=== PATIENT | male | born 1965 | race Caucasian/White ===

== ENCOUNTER 2022-01-03 07:05 | Outpatient (CLI) | payer OTHER, SELFPAY ==
--- NOTE | 2022-01-03 07:15 | MR_ITS ---
[address] [address] Phone:?[phone] Fax:?[phone] Referring Physician Information: Pieter Webster D.P.M. [address] [place] [address] Phone:?[phone] Fax:?[phone] Patient:?Jorge Conner D.O.B:?1965 Sex:?Male Phone:?[phone] [facility] MRN:?[id number] Exam Date:?01/03/2022 ? EXAM: MRI OF THE RIGHT ANKLE WITHOUT CONTRAST CLINICAL INFORMATION: Male, 56 years old, with right ankle pain. INDICATION: Evaluate ankle pain. PRIOR SURGERY: None reported. PLAIN FILMS: None available. COMPARISONS: No prior MRIs available. TECHNICAL INFORMATION: Using a 1.5T MR scanner and a localizing surface coil: sagittals: T1, STIR coronals: T1, STIR axials: T1, STIR SEDATION: None. CONTRAST: None. FINDINGS: Osseous structures: Mild-moderate edema-like signal is present in the posterior aspect of the lateral malleolus (axial STIR series 8 image 1). Additionally, mild-moderate edema is present in the posterior aspect of the calcaneal tuberosity, adjacent to the Achilles tendon insertion. No discrete fracture seen. Os trigonum: No os trigonum or abnormally prominent Stieda's process. Tarsal coalition: No calcaneonavicular, talocalcaneal or cubonavicular coalition. Tibiotalar joint: Effusion: Small tibiotalar joint effusion. Ganglion cyst: None. Osteochondral surfaces: No osteochondral abnormality. Loose bodies: No demonstrable loose bodies. Subtalar joint: Effusion: Small subtalar joint effusion. Articular cartilage: No osteochondral abnormality. Tarsal joints: Talonavicular: Unremarkable. Calcaneocuboid: Unremarkable. Approximately 11 x 7 x 8 mm ganglion cyst arises from the medial aspect of the calcaneocuboid joint (axial STIR series 8 image 13 and coronal STIR series 6 image 5). Naviculocuneiform: Unremarkable. Ligaments: Syndesmotic ligaments:?The anterior and posterior inferior tibiofibular syndesmotic ligaments are normal. Lateral ligaments:?Moderate attenuation and irregularity of the anterior talofibular and calcaneofibular ligaments (axial T1 series 7 images 9-15). Deltoid ligament:?The visualized components of the superficial and deep deltoid ligament, specifically the tibiospring and posterior tibiotalar ligaments, are intact, but mildly attenuated and irregular in appearance. Calcaneonavicular spring ligament:?The superomedial component of the calcaneonavicular spring ligament is grossly intact. Bifurcate and calcaneocuboid ligaments:?Intact lateral calcaneonavicular and medial calcaneocuboid ligaments. The dorsolateral calcaneocuboid ligament is intact. Tendons: Peroneal:?The peroneal tendons are appropriately situated within the retromalleolar groove and the superior peroneal retinaculum is intact. Normal thickness and signal intensity without tendinopathy, tenosynovitis, or split/tear. Flexor tendons:?The posterior tibialis, flexor digitorum and flexor hallucis longus tendons are intact. No significant tendinopathy and without tenosynovitis, tendon split or tendon disruption. Extensor tendons:?The anterior tibialis, extensor digitorum longus, and extensor hallucis longus tendons are intact. No significant tendinopathy and without tenosynovitis, tendon split or tendon disruption. Achilles:?Mild Achilles insertional tendinopathy and fraying, without tendon tear (axial STIR series 8 image 13 and sagittal STIR series 4 image 15). Mild to moderate soft tissue edema is present posterior to the tendon insertion (sagittal STIR series 4 image 16). Sinus tarsi:?The sinus tarsi signal is normal. Plantar aponeurosis: There is no abnormal thickening of, abnormal intrasubstance signal involving, or perifascial edema about the plantar aponeurosis. Specifically, the plantar fascia origin appears normal in signal intensity and morphology. Plantar musculature:?The intrinsic foot musculature is normal in bulk and signal intensity without evidence of denervation atrophy. Neurovascular structures and tarsal tunnel: The posterior tibial neurovascular structures appear unremarkable coursing past the ankle and through the tarsal tunnel. IMPRESSION: 1. Mild Achilles insertional tendinopathy and fraying, without tendon tear, but with mild-moderate soft tissue and underlying bone marrow edema. 2. Chronic sequelae of low-grade/incomplete sprains of the lateral ligaments and deltoid ligamentous complex, without evidence of an acute injury. 3. Approximately 11 x 7 x 8 mm ganglion cyst arising from the medial aspect of the calcaneocuboid joint. 4. Nonspecific small tibiotalar and subtalar joint effusions. No chondromalacia or osteochondral lesion throughout the hindfoot/ankle. 5. No fracture or osseous stress reaction. 6. No other ligamentous or myotendinous abnormality. BC Electronically signed on 01/03/2022 2:38:00 PM by Tray Keys M.D.
== END 2022-01-03 07:06 | disposition home or self-care (01) ==
LOC: MRI 07:06
PROVIDERS: PCP Family Medicine
DX: M25.571 Pain in right ankle and joints of right foot (principal); M25.471 Effusion, right ankle; L03.115 Cellulitis of right lower limb
CPT/HCPCS: 73721

== ENCOUNTER 2022-01-03 11:05 | Outpatient (REF) | payer OTHER, SELFPAY ==
[2022-01-03 11:32] LABS: Basophils Absolute Auto 0.06 K/uL (0.00-0.30); Basophils Percent Auto 1.2 % (0.0-3.0); Eosinophils Percent Auto 4.1 % (0.0-7.0); Hematocrit 47.2 % (37.0-53.0); Hemoglobin* 15.5 gm/dL (13.5-17.5); Lymphocytes Absolute Auto 1.81 K/uL (0.90-2.90); Lymphocytes Percent Auto 37.2 % (20-44); Mean Corpuscular HGB Conc 33 gm/dL (32-36); Mean Corpuscular Hemoglobin 30 pg (26-34); Mean Corpuscular Volume 92 fL (80-100); Monocytes Percent Auto 9.9 % (0.0-11.0); Neutrophils Absolute Auto 2.31 K/uL (1.7-7.0); Neutrophils Percent Auto 47.6 % (42.0-72.0); Platelet Count* 209 K/uL (140-440); RDW Coefficient of Variation % 12.9 % (11.5-15.5); Red Blood Count 5.12 m/uL (4.30-5.90); White Blood Count* 4.86 K/uL (4.50-11.00)
[2022-01-03 11:34] LABS: Slide Review Reflex No
[2022-01-03 11:43] LABS: C Reactive Protein* < 0.5 mg/dL (0.5-1.0)
[2022-01-03 12:13] LABS: Erythrocyte SedimentationRate* <2 mm/hr (2-15)
== END 2022-01-03 11:06 | disposition home or self-care (01) ==
LOC: NPINS 11:05
PROVIDERS: PCP Family Medicine
DX: L03.115 Cellulitis of right lower limb (principal)
CPT/HCPCS: 85025; 85651; 86140; 86618

== ENCOUNTER 2023-07-13 16:52 | Outpatient (CLI) | payer OTHER, SELFPAY | END 2023-07-13 16:53 | disposition home or self-care (01) | PROVIDERS: PCP Family Medicine; Visit Provider Family Medicine | DX: N52.9 Male erectile dysfunction, unspecified (principal); Z13.228 Encounter for screening for other metabolic disorders; Z13.220 Encounter for screening for lipoid disorders; Z12.5 Encounter for screening for malignant neoplasm of prostate | CPT/HCPCS: 80048; 80061; G0103 ==

== ENCOUNTER 2023-08-17 19:20 | Outpatient (CLI) | payer OTHER, SELFPAY ==
--- NOTE | 2023-09-22 12:23 | W.PM.SLEEP ---
Sleep Study Details Details Interpreting Provider: Lisa Date of Sleep Study: 08/17/23 Sleep Study Details: STUDY TYPE:? Home unattended ? BMI:? 29.2 ORDERING PROVIDER:Caitlyn Robison INDICATION:? Concerned about sleep apnea ? SLEEP SUMMARY:? 410 minutes monitored RESPIRATORY SUMMARY:? AHI 38.7, left lateral 8.3, right lateral 37.4, supine 52.4 Low oxygen 70 9.2% of study oxygen less than 90% Snoring 27.9% PERIODIC LIMB MOVEMENTS OF SLEEP:? Not recorded CARDIAC:? Range 56-89, mean 65.7 beats per minute IMPRESSION:? Severe obstructive sleep apnea RECOMMENDATION: Treatment options include CPAP AutoSet, in-lab titration. Dental appliance and airway expansion surgery are less likely to be effective.
== END 2023-08-17 19:21 | disposition home or self-care (01) ==
LOC: SLEEP 19:21
PROVIDERS: PCP Family Medicine; Visit Provider Family Medicine
DX: G47.33 Obstructive sleep apnea (adult) (pediatric) (principal)
CPT/HCPCS: 95806

== ENCOUNTER 2024-11-28 14:12 | Outpatient (CLI) | payer OTHER, SELFPAY | END 2024-11-28 14:13 | disposition home or self-care (01) | PROVIDERS: PCP Family Medicine; Visit Provider Family Medicine | DX: Z00.00 Encounter for general adult medical examination without abnormal findings (principal); N52.9 Male erectile dysfunction, unspecified; Z13.228 Encounter for screening for other metabolic disorders; Z13.6 Encounter for screening for cardiovascular disorders; Z12.5 Encounter for screening for malignant neoplasm of prostate | CPT/HCPCS: 80048; 80061; G0103 ==

== ENCOUNTER 2025-01-13 12:41 | Outpatient (CLI) | payer OTHER, SELFPAY ==
--- NOTE | 2025-01-13 13:00 | CRLHL7_ITS ---
For Patients: As a result of the 21st Century Cures Act, medical imaging exams and procedure reports are released immediately into your electronic medical record. You may view this report before your referring provider. If you have questions, please contact your health care provider. CLINICAL INDICATION: Left shoulder pain. COMPARISON IMAGING STUDIES: None available at time of interpretation. TECHNICAL: Non-contrast MRI of the left shoulder. Axial, sagittal oblique and coronal oblique T1, PD, PD FS, T2 and T2 FS images. 1.5 [place] MR scanner. FINDINGS: GLENOHUMERAL JOINT: Effusion/Joint Space: No effusion. No joint bodies. Humeral Head Articular Cartilage: Maintained. Glenoid Articular Cartilage: Maintained. Alignment: Maintained. Capsule: No generalized capsular edema. OSSEOUS STRUCTURES: No acute fracture. No avascular necrosis. Focus of reactive cystic-like change involves the lesser tuberosity. CORACOACROMIAL ARCH: Acromial Morphology: Type 2 acromial morphology. Lateral downward sloping of the acromion. No os acromiale. Spurring of the anterolateral acromion. Lateral acromial thickness is 10 mm. Acromiohumeral Interval: At its narrowest, the interval measures 7 mm. Coracohumeral Interval: At its narrowest, the coracohumeral interval measures 6 mm. Coracoid index is 24 mm. ACROMIOCLAVICULAR JOINT REGION: AC joint degenerative arthrosis. Coracoclavicular ligament intact. BURSAE: No bursal fluid collection. ROTATOR CUFF TENDONS AND MUSCLES AND DELTOID: Supraspinatus and Infraspinatus: Moderate supraspinatus tendinosis. There is a suspected 6 millimeter anterior/posterior extent partial-thickness undersurface tear of the anterior most distal tendon on coronal oblique T2 image number 10 of series 6. This appears high-grade on that image. There is no muscle atrophy. Mild infraspinatus tendinosis without infraspinatus tendon tear or muscle atrophy. Teres Minor: Distal tendon intact. No muscle atrophy. Subscapularis: High-grade tearing of the distal subscapularis tendon over a 12 millimeter craniocaudad by 11 millimeter medial/lateral extent. No muscle atrophy. Deltoid: No muscle atrophy or edema. BICEPS TENDON, LONG HEAD: There is tendinosis and partial tearing of the long head of biceps tendon. Degenerative labral changes extend to the biceps anchor region. No dislocation of tendon from bicipital groove. GLENOID LABRUM: Degenerative tearing/fraying of the superior labrum. Labrum below level of the equator appears intact. OTHER FINDINGS: There is no abnormality within the suprascapular or spinoglenoid notches nor within the quadrilateral space. No axillary adenopathy or mass. IMPRESSION: 1. High-grade tearing of the distal subscapularis tendon superiorly, without muscle atrophy. 2. Subcentimeter area of suspected high-grade partial-thickness undersurface supraspinatus tendon tearing anteriorly. Moderate underlying tendinosis. No muscle atrophy. 3. Tendinosis and partial tearing of the long head of the biceps tendon. 4. Degenerative tearing and fraying of the superior labrum. 5. AC joint degenerative arthrosis. 6. Lateral downward sloping of the acromion with spurring of the anterior aspect of the lateral acromion. Dictated by Sg Guzman MD @ 01/16/2025 10:06:11 AM (Electronically Signed)
== END 2025-01-13 12:42 | disposition home or self-care (01) ==
PROVIDERS: PCP Family Medicine; Visit Provider Family Medicine
DX: M25.512 Pain in left shoulder (principal); M75.102 Unspecified rotator cuff tear or rupture of left shoulder, not specified as traumatic; S46.812A Strain of other muscles, fascia and tendons at shoulder and upper arm level, left arm, initial encounter; M19.012 Primary osteoarthritis, left shoulder
CPT/HCPCS: 73221

== ENCOUNTER 2025-02-06 14:12 | Outpatient (CLI) | payer OTHER, SELFPAY | END 2025-02-06 14:13 | disposition home or self-care (01) | PROVIDERS: PCP Family Medicine; Visit Provider Family Medicine | DX: Z01.818 Encounter for other preprocedural examination (principal) | CPT/HCPCS: 80048; 85025 ==

== ENCOUNTER 2025-03-01 09:34 | Day surgery (SDC) | payer OTHER, SELFPAY ==
[2025-03-01] VITALS (14 sets, daily range): BP systolic 120–142; BP diastolic 75–95; PULSE 69–94; RESP 12–20; TEMP 36.3–36.9; O2SAT 92–98; BMI 31.1
[2025-03-01] MEDS: LACTATED RINGERS 1000 ML 1,000 ML 100 ML IV ×2 (10:20→13:47)
[2025-03-01] MEDS: SODIUM CHLORIDE 0.9 % (FLUSH) 10 ML SYRINGE IVF (10:21)
[2025-03-01] MEDS: EPINEPHrine 1 MG in SODIUM CHLORIDE IRRIG SOLUTION 3,000 ML 2000 MG IRRIGATION (10:45)
--- NOTE | 2025-03-01 10:49 | W.PM.H&PU ---
History & Physical Update History & Physical Update H&P Reviewed and patient assessed: No changes noted
--- NOTE | 2025-03-01 11:27 | SUR.PREOP ---
TIME?OUT:?1133 PT/Rica Feng RN/Dr. Earl MDA?VERIFICATION?OF?SURGICAL?SITE left shoulder,?PROCEDURE,?AND?CONSENT OBTAINED?PRIOR?TO?INVASIVE?PROCEDURE.
[2025-03-01] MEDS: MIDAZOLAM HCL 1 MG/ML inj IVP (11:34)
[2025-03-01] MEDS: EPINEPHrine 1 MG in SODIUM CHLORIDE IRRIG SOLUTION 3,000 ML 9003 MG IRRIGATION ×2 (13:40→13:51)
--- NOTE | 2025-03-01 13:50 | P.ANES_ITS ---
Anesthesia Charges Start Date/Time Anesthesia Start Date: 03/01/25 Anesthesia Start Time: 12:10 Stop Date/Time Anesthesia Stop Date: 03/01/25 Anesthesia Stop Time: 14:13 Coding CPT Codes CPT Codes: ANESTH SURGERY OF SHOULDER - 21427 ([id number]) P2 - PATIENT W/MILD SYST DISEASE, QK - UNDERWRITING TECHNICIAN 2-4 CNCRNT ANES PROC, QX - VESSEL ORDINARY SEAMAN SVC W/ MD MED DIRECTION
--- NOTE | 2025-03-01 13:50 | W.ANESCHARGE ---
Anesthesia Charges Start Date/Time Anesthesia Start Date: 03/01/25 Anesthesia Start Time: 12:10 Stop Date/Time Anesthesia Stop Date: 03/01/25 Anesthesia Stop Time: 14:13 Coding CPT Codes CPT Codes: ANESTH SURGERY OF SHOULDER - 90457 ([id number]) P2 - PATIENT W/MILD SYST DISEASE, QK - HOSTESS HOST 2-4 CNCRNT ANES PROC, QX - RULING TECHNICIAN SVC W/ MD MED DIRECTION
--- NOTE | 2025-03-01 13:50 | W.PM.NB ---
Nerve Block Nerve Block Time Seen by Provider: 11:35 Date Seen: 03/01/25 Type of block requested by surgeon for post-operative analgesia: supraclavicular Side: left Time out performed: Yes Verification of patient name: Yes Verification of date of : Yes Site marking: site marked Name of person performing procedure: Earl Continuous monitoring Was continuous monitoring of O2 sat, B/P, manager human resources, recorded every 15 minutes?: Yes Procedure Checklist: sterile prep, needles and gloves Ultrasound guided. Images saved: Yes Medications given in 5ml increments after negative aspiration: Ropivicaine %: 0.5 mL: 20 Needle gauge: 22 Precedex (mcg): 25 Patient tolerated procedure well: Yes Block Charges Block Charge (with Pro Fee): Brachial Plexus Use of Ultrasound Machine for Block: Yes- US Guidance/pain block
--- NOTE | 2025-03-01 14:13 | P.ANES_ITS ---
Anesthesia Charges Start Date/Time Anesthesia Start Date: 03/01/25 Anesthesia Start Time: 12:10 Stop Date/Time Anesthesia Stop Date: 03/01/25 Anesthesia Stop Time: 14:13 Coding CPT Codes CPT Codes: ANESTH SURGERY OF SHOULDER - 05050 ([id number]) P2 - PATIENT W/MILD SYST DISEASE, QK - FRANCHISE MANAGER 2-4 CNCRNT ANES PROC, QX - RN IV THERAPY SVC W/ MD MED DIRECTION
--- NOTE | 2025-03-01 14:13 | W.ANESCHARGE ---
Anesthesia Charges Start Date/Time Anesthesia Start Date: 03/01/25 Anesthesia Start Time: 12:10 Stop Date/Time Anesthesia Stop Date: 03/01/25 Anesthesia Stop Time: 14:13 Coding CPT Codes CPT Codes: ANESTH SURGERY OF SHOULDER - 23742 ([id number]) P2 - PATIENT W/MILD SYST DISEASE, QK - HEALTH INFORMATION MANAGEMENT DIRECTOR 2-4 CNCRNT ANES PROC, QX - COFFEE BREWER SVC W/ MD MED DIRECTION
[2025-03-01] MEDS: ACETAMINOPHEN 500 MG TABLET PO (14:57)
[2025-03-01] MEDS: IBUPROFEN 200 MG TABLET 600 MG PO (14:57)
--- NOTE | 2025-03-01 16:03 | P.ORPRC_ITS ---
Procedure Note Date of procedure: 03/01/25 Procedure: PREOPERATIVE DIAGNOSES: 1. Left shoulder rotator cuff tear. 2. Left shoulder AC degenerative joint disease, primary, severe 3. Left shoulder long head biceps tendinopathy with partial-thickness tearing. 4. Left shoulder labral tearing. 5. Left shoulder subacromial impingement syndrome. POSTOPERATIVE DIAGNOSES: 1. Left shoulder long head biceps tendinopathy with partial-thickness tearing. 2. Left shoulder AC degenerative joint disease, primary, severe 3. Left shoulder labral tearing. 4. Left shoulder subacromial impingement syndrome. NAME OF OPERATION: 1. Left shoulder arthroscopic long head of biceps tenodesis. 2. Left shoulder arthroscopic distal clavicle excision 3. Left shoulder arthroscopic limited glenohumeral debridement 4. Left shoulder arthroscopic bursectomy, subacromial decompression/partial acromioplasty. SURGEON: Dimitri Dale MD INTERVENTION MANAGER: Levi PHILLIPS. Of note, a skilled assistant office manager was critical for this case to aide in patient positioning, suture manipulation, arm positioning, instrument positioning, and closure. ANESTHESIA: General plus preoperative supraclavicular block. EBL: 25 mL IMPLANTS: Arthrex knotless FiberTak biceps tenodesis anchor (x1) COMPLICATIONS: None evident INDICATIONS: The patient is a pleasant, 59-year-old male who has experienced left shoulder pain that has been increasing in recent time. Physical exam and imaging were consistent with a rotator cuff tear. MRI had suspicion for a partial-thickness rotator cuff tear but also along the biceps tendinopathy with subluxation of the bicipital groove. Given their findings, as well as the weakness and pain, and inadequate response to nonoperative management, recommendation was made for surgery. FINDINGS: Exam under anesthesia revealed stable shoulder with excellent range of motion. The diagnostic arthroscopy revealed healthy chondral surfaces of the glenohumeral joint. The Subscapularis tendon was relatively intact with only mi ld partial tearing of the far upper border with minimal retraction. The long head of the biceps tendon was torn in a partial-thickness manner both at the superior edge of bicipital groove but also further distal down after retracting the tendon into the joint. It also had significant subluxation of the bicipital groove. The superior rotator cuff tendon was found to be torn and a low-grade partial-thickness manner on the articular side. No weakness with probing. The labrum was degeneratively frayed in the anterior and superior aspects. No loose bodies were identified within the pouch or subscapularis recess. PROCEDURE: Following a thorough discussion of risks, benefits, and alternatives, consent was obtained and the left shoulder was marked. The patient was brought to the operating room and placed supine on the operating table. Induction of anesthesia was completed after preoperative supraclavicular block was administered in preop holding. Appropriate time out was performed identifying proper patient, site, and procedure. 2 g IV Ancef was administered within 1 hour of incision preoperatively. The left upper extremity was prepped and draped in the appropriate sterile f ashion using ChloraPrep prep. This was after the patient was positioned in the beach chair with their head in neutral alignment and all bony prominences well padded. The shoulder was insufflated with 20mL of normal saline via an 18g spinal needle from a posterior approach. An 11 blade skin incision allowed a blunt trochar to be inserted and diagnostic arthroscopy to be performed with the findings as noted above. An anterior portal was established with an outside in technique. This allowed the probe to be inserted and confirm the diagnostic arthroscopic findings. The shaver was then inserted and allowed debridement of the anterior and superior labrum. Thereafter, biceps tenodesis was performed given the appearance of the biceps tendon and the subluxation. The biceps tendon was retracted medially out of the groove, the groove was prepared with an arthroscopic rasp. Biceps tendon then was secured with the Arthrex knotless FiberTak biceps tenodesis anchor. The passing suture was looped around the tendon. Pre converted loop was retrieved after piercing through the middle of the tendon and retrieved out the other side. The passing suture was grasped through the pre converted loop and shuttled through the knotless mechanism. Both the pre converted white suture and the blue passing suture were then tension with excellent security the biceps against the bicipital groove in the suprapectoral region. Following this, the upper border subscapularis was again probed and found to be stable without significant retraction tearing. Thereafter, the subacromial space was entered. Here, a complete bursectomy and partial acromioplasty/subacromial decompression was performed with a combination of radiofrequency ablator, the shaver, and a 5.5 mm bur. Additionally, distal clavicle excision was performed with the bur. 8 mm of distal clavicle was resected based on the width of our bur. Further inspection of the supraspinatus and infraspinatus rotator cuff was performed. This identified no clear weakening upon probing from the bursal side. Thorough probing was performed and again no weakness that allow the probe to penetrate through. No buckling or bubbling of supraspinatus was appreciated. The shoulder was placed through range of motion and found to be stable. Instruments were removed. Excess fluid was drained, closure performed with 4-0 Monocryl and Steri-Strips. Dressings were applied. Sling was applied. The patient was awoken from anesthesia and transferred to the PACU in stable condition. A skilled assistant office manager was critical for this case to aid in patient positioning, limb positioning, skill to manipulate arthroscopic instruments and camera, suture management, patient safety, and closure. PLAN: 1. Elbow, forearm, wrist and digit range of motion of operative extremity as tolerated. 2. Encouraged ice. 3. Oxycodone for pain as needed. 4. Sling at all times except for ROM and showering. 5. Follow up with PA visit in 1-2 weeks for wound check. Initiate physical therapy following that visit for passive range of motion. Initiate active assisted range of motion at 3-4 weeks. May do pendulums now.
== END 2025-03-01 16:06 | disposition home or self-care (01) ==
LOC: OR 09:35
PROVIDERS: PCP Family Medicine; Visit Provider Orthopaedic Surgery Sports Medicine
PROC: (CPT 29805; principal; 2025-03-01 11:30)
DX: M75.102 Unspecified rotator cuff tear or rupture of left shoulder, not specified as traumatic (principal); M19.012 Primary osteoarthritis, left shoulder; M75.22 Bicipital tendinitis, left shoulder; M75.42 Impingement syndrome of left shoulder; S43.432A Superior glenoid labrum lesion of left shoulder, initial encounter; G89.18 Other acute postprocedural pain
CPT/HCPCS: 29824; 29826; 29828; 29822; 01630; 64415; 76942; A9270; C1713; J0169; J0330; J0690; J1100; J2250; J2371; J2405; J2704; J2795; J3010; J7120; L3670